=== PATIENT | male | born 1955 | race Two or more races ===

== ENCOUNTER 2017-05-10 10:22 | Emergency (ER) | payer BC, OTHER ==
[~2017-05-10] VITALS: Ht 170.2 cm; Wt 49.9 kg
[~2017-05-10 10:22] MED LIST: EYE VITAMIN PO; OMEGA-31000 M1 PO; SM NATURAL BAL100 MG PO
[2017-05-10] MEDS ORDERED: MULTIVITAMINS1 EAC8 ORAL (10:33)
[2017-05-10] MEDS ORDERED: Morphine Sulfate 2mg/ml Inj IVP ONE (11:15)
[2017-05-10 11:36] LABS: APPEARANCE,URINE CLEAR; BASOPHILS % (AUTO) 1.7 % (0.0-2.0); EOSINOPHILS % (AUTO) 1.5 % (0.0-3.0); KETONES,URINE NEGATIVE (NEGATIVE); LEUKOCYTE ESTERASE ,URINE 1+ (NEGATIVE); LYMPHOCYTES % (AUTO) 20.3 % (20.0-45.0); MEAN CORPUSCULAR HEMOGLOBIN 30.7 PG (27.0-31.0); MEAN CORPUSCULAR HGB CONC 33.4 G/DL (32.0-36.0); MEAN CORPUSCULAR VOLUME 92 FL (80-99); MEAN PLATELET VOLUME 9.9 FL (6.5-10.1); MONOCYTES % (AUTO) 9.3 % (1.0-10.0); NEUTROPHILS % (AUTO) 67.2 % (45.0-75.0); NITRITE,URINE NEGATIVE (NEGATIVE); PH,URINE 7 (4.5-8.0); PLATELET COUNT 162 K/UL (150-450); PROTEIN,URINE NEGATIVE (NEGATIVE); RED BLOOD COUNT 4.43 M/UL (4.70-6.10); RED CELL DISTRIBUTION WIDTH 10.8 % (11.6-14.8); UROBILINOGEN,URINE NORMAL MG/DL (0.0-1.0); WHITE BLOOD COUNT 6.9 K/UL (4.8-10.8)
[2017-05-10 11:44] LABS: BACTERIA,URINE OCCASIONAL /HPF; RBC,URINE 0-2 /HPF (0 - 0); SQUAMOUS EPITHELIAL CELL,UR OCCASIONAL /LPF (NONE/OCC); WBC,URINE 0-2 /HPF (0 - 0)
[2017-05-10 11:54] LABS: ALANINE AMINOTRANSFERASE 12 U/L (3-41); ALBUMIN/GLOBULIN RATIO 1.5 (1.0-2.7); ANION GAP 9 (5-15); ASPARTATE AMINO TRANSFERASE 18 U/L (5-40); CALCIUM 9.1 mg/dL (8.6-10.2); CARBON DIOXIDE 29 mEQ/L (20-30); CHLORIDE 94 mEQ/L (98-107); CREATININE 0.9 mg/dL (0.7-1.2); GLOMERULAR FILTRATION RATE > 60 mL/min (>60); HEMOLYSIS 5; LIPASE 28 U/L (< 60); POTASSIUM 4.5 mEQ/L (3.4-4.9); SODIUM 132 mEQ/L (135-145)
[2017-05-10 12:30] VITALS: BP 112/72
[2017-05-10] MEDS ORDERED: BENTYL10 MG ORAL (13:38)
[2017-05-10 14:05] VITALS: BP 116/78
--- NOTE | 2017-05-11 06:28 | Emergency Room Report ---
History of Present Illness General Chief Complaint: Abdominal Pain Source: Patient Present Illness HPI Patient is a 61-year-old male who presented for increased lower abdominal pain. Patient had reportedly pain from his right flank which radiated to his right lower quadrant. The patient denied dysuria. He denied any prior history of kidney stones. He states he previously been diagnosed with [place]'s disease however this had resolved. The patient had not been vomiting. He denied any diarrhea. Allergies: Coded Allergies: No Known Allergies (Unverified , 06/13/14) Patient History Past Medical History: see triage record Reviewed Nursing Documentation: PMH: Agreed, PSxH: Agreed Nursing Documentation-PMH Hx Cardiac Problems: No Hx Cancer: No Hx Gastrointestinal Problems: Yes Hx Neurological Problems: No - [place]'s Disease. Review of Systems All Other Systems: negative except mentioned in HPI Physical Exam Vital Signs Date Time Temp Pulse Resp B/P (MAP) Pulse Ox O2 Delivery O2 Flow Rate FiO2 05/10/17 10:29 98.1 83 17 127/80 96 Room Air Sp02 EP Interpretation: reviewed, normal General Appearance: normal inspection, well appearing, no apparent distress, alert, GCS 15 Head: atraumatic ENT: normal ENT inspection, hearing grossly normal, normal voice Neck: normal inspection, full range of motion, supple, no bony tend Respiratory: normal inspection, lungs clear, normal breath sounds, no respiratory distress, no retraction, no wheezing Cardiovascular #1: regular rate, rhythm, no edema Gastrointestinal: normal inspection, normal bowel sounds, non tender, soft, no guarding, no hernia Genitourinary: no CVA tenderness Musculoskeletal: normal inspection, back normal, normal range of motion Neurologic: normal inspection, alert, oriented x3, responsive, business broker III-XII nml as tested, speech normal Psychiatric: normal inspection, judgement/insight normal, mood/affect normal Skin: normal inspection, normal color, no rash Medical Decision Making Diagnostic Impression: Primary Impression: Abdominal pain Additional Impression: Fatty liver ER Course Patient presented for abdominal pain. Differential diagnoses included ischemic bowel, appendicitis, perforated viscus, abdominal aortic aneurysm, inferior myocardial infarction, viral gastroenteritis Because of complexity of patient's case laboratory testing and imaging studies were ordered.The left her testing was unremarkable. The patient's electrolyte appear normal. CT the head and pelvis was ordered to evaluate for possible appendicitis as CT with radiology showed normal appendix. The patient is advised to follow up with primary care doctor in 1-2 days. Patient is advised to return if any worsening condition or if any changes in status that are concerning. Labs Test 05/10/17 11:30 White Blood Count 6.9 K/UL (4.8-10.8) Red Blood Count 4.43 M/UL (4.70-6.10) Hemoglobin 13.6 G/DL (14.2-18.0) Hematocrit 40.8 % (42.0-52.0) Mean Corpuscular Volume 92 FL (80-99) Mean Corpuscular Hemoglobin 30.7 PG (27.0-31.0) Mean Corpuscular Hemoglobin Concent 33.4 G/DL (32.0-36.0) Red Cell Distribution Width 10.8 % (11.6-14.8) Platelet Count 162 K/UL (150-450) Mean Platelet Volume 9.9 FL (6.5-10.1) Neutrophils (%) (Auto) 67.2 % (45.0-75.0) Lymphocytes (%) (Auto) 20.3 % (20.0-45.0) Monocytes (%) (Auto) 9.3 % (1.0-10.0) Eosinophils (%) (Auto) 1.5 % (0.0-3.0) Basophils (%) (Auto) 1.7 % (0.0-2.0) Urine Color Pale yellow Urine Appearance Clear Urine pH 7 (4.5-8.0) Urine Specific [place] 1.015 (1.005-1.035) Urine Protein Negative (NEGATIVE) Urine Glucose (UA) Negative (NEGATIVE) Urine Ketones Negative (NEGATIVE) Urine Occult Blood 3+ (NEGATIVE) Urine Nitrite Negative (NEGATIVE) Urine Bilirubin Negative (NEGATIVE) Urine Urobilinogen Normal MG/DL (0.0-1.0) Urine Leukocyte Esterase 1+ (NEGATIVE) Urine RBC 0-2 /HPF (0 - 0) Urine WBC 0-2 /HPF (0 - 0) Urine Squamous Epithelial Cells Occasional /LPF Urine Bacteria Occasional /HPF (NONE) Sodium Level 132 mEQ/L (135-145) Potassium Level 4.5 mEQ/L (3.4-4.9) Chloride Level 94 mEQ/L (98-107) Carbon Dioxide Level 29 mEQ/L (20-30) Anion Gap 9 (5-15) Blood Urea Nitrogen 15 mg/dL (7-23) Creatinine 0.9 mg/dL (0.7-1.2) Estimat Glomerular Filtration Rate > 60 mL/min (>60) Glucose Level 102 mg/dL (74-106) Calcium Level 9.1 mg/dL (8.6-10.2) Total Bilirubin 0.7 mg/dL (0.0-1.2) Aspartate Amino Transf (AST/SGOT) 18 U/L (5-40) Alanine Aminotransferase (ALT/SGPT) 12 U/L (3-41) Alkaline Phosphatase 71 U/L (40-129) Total Protein 7.0 g/dL (6.6-8.7) Albumin 4.3 g/dL (3.5-5.2) Globulin 2.7 g/dL Albumin/Globulin Ratio 1.5 (1.0-2.7) Lipase 28 U/L (< 60) Last Vital Signs Date Time Temp Pulse Resp B/P (MAP) Pulse Ox O2 Delivery O2 Flow Rate FiO2 05/10/17 14:05 98.3 71 16 116/78 99 Room Air Status: improved Disposition: HOME, SELF-CARE Condition: Stable Scripts Dicyclomine Hcl* (BENTYL*) 10 Mg Capsule 10 MG ORAL FOUR TIMES A DAY, #20 CAP Prov: Lv Lamb 05/10/17 Referrals: Emily ALARCON,REFERRING (PCP) Patient Instructions: Abdominal Pain, Adult Lv Lamb May 11, 2017 06:28
--- NOTE | 2017-05-11 10:18 | Diagnostic Imaging Report ---
Indication: Abdominal pain Technique: CT of the abdomen and pelvis utilizing automated exposure control with intravenous contrast. Venous scanning performed. CT dose: Total DLP 653 mGycm; CTDI vol 12.3 mGy Comparison: None Findings: Lung bases are clear. Liver, adrenal glands, spleen and the pancreas are grossly unremarkable. No CT evident gallstones are identified. The kidneys are grossly unremarkable. The small bowel loops are normal in caliber. The appendix is normal. There is colonic diverticulosis without diverticulitis. There is a 1.6 cm area of rounded low-density within the midline of the seminal vesicles/prostate junction. The prostate is enlarged. Bladder is grossly unremarkable. Atherosclerotic changes are seen. The abdominal aorta is normal in caliber. Osseous structures demonstrate no acute abnormality. There is a small diverticulum of the posterior proximal stomach. Impression: No acute intra-abdominal abnormality. Normal appendix. Mild colonic diverticulosis without diverticulitis. Prostate enlargement. Approximately 1.6 cm rounded low-density within the midline of the seminal vesicles/prostate junction of uncertain etiology. Correlation with urinalysis and PSA recommended. Further evaluation recommended as indicated. Other findings as above. Findings discussed with Dr. Lamb 05/11/[address] scanner at [facility] is accredited by the [employer] [place] [employer] and the scans are performed using protocols designed to limit radiation exposure to as low as reasonably achievable to attain images of sufficient resolution adequate for diagnostic evaluation.
== END 2017-05-10 14:17 | disposition home or self-care (01) ==
LOC: EMR 10:40
DX: R10.30 Lower abdominal pain, unspecified (principal); K76.0 Fatty (change of) liver, not elsewhere classified; K57.30 Diverticulosis of large intestine without perforation or abscess without bleeding
CPT/HCPCS: 74177; 80053; 81003; 83690; 85025; 96374; 99284; J2270; Q9967

== ENCOUNTER 2017-07-04 09:01 | Inpatient (IN) | payer OTHER, BC ==
[~2017-07-04] VITALS: Ht 167.6 cm; Wt 49.9 kg
[~2017-07-04 09:01] MED LIST changes: +BENTYL10 MG ORAL; +MULTIVITAMINS1 EAC8 ORAL
[2017-07-04] MEDS ORDERED: AMOXICILLIN500 MG ORAL (09:12)
[2017-07-04 09:15] VITALS: BP 114/71
[2017-07-04 10:33] LABS: BASOPHILS % (AUTO) 0.8 % (0.0-2.0); EOSINOPHILS % (AUTO) 0.2 % (0.0-3.0); LYMPHOCYTES % (AUTO) 11.3 % (20.0-45.0); MEAN CORPUSCULAR HEMOGLOBIN 31.3 PG (27.0-31.0); MEAN CORPUSCULAR HGB CONC 34.3 G/DL (32.0-36.0); MEAN CORPUSCULAR VOLUME 91 FL (80-99); MEAN PLATELET VOLUME 10.1 FL (6.5-10.1); MONOCYTES % (AUTO) 10.9 % (1.0-10.0); NEUTROPHILS % (AUTO) 76.7 % (45.0-75.0); PLATELET COUNT 161 K/UL (150-450); RED BLOOD COUNT 4.19 M/UL (4.70-6.10); RED CELL DISTRIBUTION WIDTH 10.4 % (11.6-14.8); WHITE BLOOD COUNT 8.7 K/UL (4.8-10.8)
[2017-07-04] MEDS ORDERED: Hydrocortisone 100mg Inj IV ONE (10:45)
--- NOTE | 2017-07-04 10:51 | Emergency Room Report ---
History of Present Illness General Chief Complaint: Upper Respiratory Illness Source: Patient Present Illness HPI 51-year-old male, history of [place]'s disease, not on medication, presenting with 3 days of generalized weakness, chills, cough. Cough is productive with white sputum. Subjective fevers however did not take his medication. States that he feels very weak he cannot even eat or drink. No sick contacts or recent travel. 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 Review of Systems All Other Systems: negative except mentioned in HPI Physical Exam Vital Signs Date Time Temp Pulse Resp B/P (MAP) Pulse Ox O2 Delivery O2 Flow Rate FiO2 07/04/17 09:06 99.1 87 14 114/71 99 Room Air Sp02 EP Interpretation: reviewed, normal General Appearance: other - Tired appearing middle age male, calm and cooperative, slightly dehydrated, not in respiratory distress Head: normocephalic, atraumatic Eyes: bilateral eye normal inspection, bilateral eye PERRL, bilateral eye EOMI ENT: normal ENT inspection, normal pharynx, normal voice, moist mucus membranes Neck: normal inspection, full range of motion, supple Respiratory: normal inspection, lungs clear, normal breath sounds, no respiratory distress, no retraction, no wheezing, speaking full sentences, chest symmetrical Cardiovascular #1: normal inspection, regular rate, rhythm, no edema, normal capillary refill Cardiovascular #2: 2+ radial (R), 2+ radial (L) Gastrointestinal: normal inspection, non tender, soft, non-distended, no guarding Musculoskeletal: normal inspection, back normal, normal range of motion, non- tender Neurologic: normal inspection, alert, oriented x3, responsive, motor strength/ tone normal, sensory intact, normal gait, speech normal Psychiatric: normal inspection, judgement/insight normal, memory normal Skin: normal inspection, normal color, no rash, warm/dry, well hydrated, normal turgor Medical Decision Making Diagnostic Impression: Primary Impression: Hyponatremia Additional Impressions: Generalized weakness [place] disease ER Course 61-year-old male with fever chills and cough DDX: Viral syndrome / URI / versus pneumonia Plan: Obtain labs, ua, EKG, CXR ER course: Patient has been monitored during ED stay, HD stable Patient was given hydrocortisone + fluids +hyponatremia attempted to call pts PMD dr Martinez [phone] no answer will admit to panel Disposition: Patient is to be admitted to [facility] floor D/W hospitalist Dr Marlow Please note that this Emergency Department Report was dictated using [employer] The[employer] of cardiac cath lab technology software, occasionally this can lead to erroneous entry secondary to interpretation by the dictation equipment. EKG Diagnostic Results EP Interpretation: Yes Rate: normal Rhythm: NSR ST Segments: No acute changes ASA given to patient: No Rhythm Strip EP Interpretation: Yes Rate: 74 Rhythm: NSR, no PVCs, no ectopy Chest X-ray CXR: Ordered: Yes 1 view Indication: Cough EP interpretation: Yes Interpretation: No consolidation, no effusion, no PTX, no acute cardiopulmonary disease Impression: No acute disease Electronically signed by Delores Trotter MD Laboratory Tests Test 07/04/17 09:49 07/04/17 10:29 White Blood Count 8.7 K/UL (4.8-10.8) Red Blood Count 4.19 M/UL (4.70-6.10) L Hemoglobin 13.1 G/DL (14.2-18.0) L Hematocrit 38.2 % (42.0-52.0) L Mean Corpuscular Volume 91 FL (80-99) Mean Corpuscular Hemoglobin 31.3 PG (27.0-31.0) H Mean Corpuscular Hemoglobin Concent 34.3 G/DL (32.0-36.0) Red Cell Distribution Width 10.4 % (11.6-14.8) L Platelet Count 161 K/UL (150-450) Mean Platelet Volume 10.1 FL (6.5-10.1) Neutrophils (%) (Auto) 76.7 % (45.0-75.0) H Lymphocytes (%) (Auto) 11.3 % (20.0-45.0) L Monocytes (%) (Auto) 10.9 % (1.0-10.0) H Eosinophils (%) (Auto) 0.2 % (0.0-3.0) Basophils (%) (Auto) 0.8 % (0.0-2.0) Sodium Level 122 MMOL/L (136-145) L Potassium Level 4.0 MMOL/L (3.5-5.1) Chloride Level 89 MMOL/L (98-107) L Carbon Dioxide Level 26 MMOL/L (21-32) Anion Gap 7 mmol/L (5-15) Blood Urea Nitrogen 16 mg/dL (7-18) Creatinine 0.9 MG/DL (0.55-1.30) Estimate Glomerular Filtration Rate > 60 mL/min (>60) Glucose Level 103 MG/DL (74-106) Lactic Acid Level 0.90 mmol/L (0.66-2.22) Calcium Level 8.7 MG/DL (8.5-10.1) Total Bilirubin 0.9 MG/DL (0.2-1.0) Aspartate Amino Transferase (AST) 24 U/L (15-37) Alanine Aminotransferase (ALT) 27 U/L (12-78) Alkaline Phosphatase 65 U/L (46-116) Creatine Kinase MB 0.5 NG/ML (0.0-3.6) Troponin I 0.017 ng/mL (0.000-0.056) Total Protein 7.5 G/DL (6.4-8.2) Albumin 3.9 G/DL (3.4-5.0) Globulin 3.6 g/dL Albumin/Globulin Ratio 1.1 (1.0-2.7) Urine Color Pale yellow Urine Appearance Clear Urine pH 8 (4.5-8.0) Urine Specific [place] 1.015 (1.005-1.035) Urine Protein Negative (NEGATIVE) Urine Glucose (UA) Negative (NEGATIVE) Urine Ketones Negative (NEGATIVE) Urine Occult Blood 1+ (NEGATIVE) H Urine Nitrite Negative (NEGATIVE) Urine Bilirubin Negative (NEGATIVE) Urine Urobilinogen Normal MG/DL (0.0-1.0) Urine Leukocyte Esterase Negative (NEGATIVE) Urine RBC 0 /HPF (0 - 0) Urine WBC 2-4 /HPF (0 - 0) Urine Squamous Epithelial Cells Occasional /LPF Urine Bacteria Occasional /HPF (NONE) Last Vital Signs Date Time Temp Pulse Resp B/P (MAP) Pulse Ox O2 Delivery O2 Flow Rate FiO2 07/04/17 09:15 87 14 Room Air 07/04/17 09:15 99.1 114/71 99 Disposition: ADMITTED INPATIENT Condition: Serious Referrals: NON PHYSICIAN (PCP) Delores Trotter M.D. Jul 04, 2017 10:51
[2017-07-04 10:54] LABS: ANION GAP 7 mmol/L (5-15); CALCIUM 8.7 MG/DL (8.5-10.1); CARBON DIOXIDE 26 MMOL/L (21-32); CHLORIDE 89 MMOL/L (98-107); CREATININE 0.9 MG/DL (0.55-1.30); GLOMERULAR FILTRATION RATE > 60 mL/min (>60); SODIUM 122 MMOL/L (136-145)
--- NOTE | 2017-07-04 11:02 | Diagnostic Imaging Report ---
Indication: SOB/cough Technique: One view of the chest Comparison: None Findings: There is bilateral apical pleural thickening and evidence of bilateral apical reticulonodular scarring. Lungs and pleural spaces are otherwise clear. Heart size is normal. Impression: Chronic appearing findings as noted. No definite acute process
[2017-07-04 11:08] LABS: ALANINE AMINOTRANSFERASE 27 U/L (12-78); ALBUMIN/GLOBULIN RATIO 1.1 (1.0-2.7); ASPARTATE AMINO TRANSFERASE 24 U/L (15-37); CKMB 0.5 NG/ML (0.0-3.6); TOTAL PROTEIN 7.5 G/DL (6.4-8.2)
[2017-07-04 11:16] VITALS: BP 123/64
[2017-07-04 11:19] LABS: APPEARANCE,URINE CLEAR; KETONES,URINE NEGATIVE (NEGATIVE); LEUKOCYTE ESTERASE ,URINE NEGATIVE (NEGATIVE); NITRITE,URINE NEGATIVE (NEGATIVE); PH,URINE 8 (4.5-8.0); PROTEIN,URINE NEGATIVE (NEGATIVE); UROBILINOGEN,URINE NORMAL MG/DL (0.0-1.0)
[2017-07-04 11:26] LABS: BACTERIA,URINE OCCASIONAL /HPF; RBC,URINE 0 /HPF (0 - 0); SQUAMOUS EPITHELIAL CELL,UR OCCASIONAL /LPF (NONE/OCC)
[2017-07-04 17:37] VITALS: BP 116/65
--- NOTE | 2017-07-04 18:06 | Infectious Diseases Prog Note ---
Assessment/Plan Problems: (1) CAP (community acquired pneumonia) Assessment & Plan: will start levaquin empiric therapy for 5-7 days , send sputum culture (2) Cough Assessment & Plan: johnathon out viral etiology, will screen for influenza, and start tamiflu empirically (3) Hyponatremia Assessment & Plan: suspect dehydration, nephrology is following (4) Generalized weakness (5) Jg disease Subjective Allergies: Coded Allergies: No Known Allergies (Unverified , 06/13/14) Objective Vital Signs Last 24 Hour Vital Signs Date Time Temp Pulse Resp B/P (MAP) Pulse Ox O2 Delivery O2 Flow Rate FiO2 07/04/17 17:37 98.5 78 18 116/65 100 Room Air 07/04/17 13:40 99.0 90 23 123/64 100 Room Air 07/04/17 11:16 99.0 90 23 123/64 100 Room Air 07/04/17 09:15 87 14 Room Air 07/04/17 09:15 99.1 84 14 114/71 99 Room Air 07/04/17 09:06 99.1 87 14 114/71 99 Room Air Height (Feet): 5 Height (Inches): 6.00 Weight (Pounds): 110 Laboratory Tests Test 07/04/17 09:49 07/04/17 10:29 White Blood Count 8.7 K/UL (4.8-10.8) Red Blood Count 4.19 M/UL (4.70-6.10) L Hemoglobin 13.1 G/DL (14.2-18.0) L Hematocrit 38.2 % (42.0-52.0) L Mean Corpuscular Volume 91 FL (80-99) Mean Corpuscular Hemoglobin 31.3 PG (27.0-31.0) H Mean Corpuscular Hemoglobin Concent 34.3 G/DL (32.0-36.0) Red Cell Distribution Width 10.4 % (11.6-14.8) L Platelet Count 161 K/UL (150-450) Mean Platelet Volume 10.1 FL (6.5-10.1) Neutrophils (%) (Auto) 76.7 % (45.0-75.0) H Lymphocytes (%) (Auto) 11.3 % (20.0-45.0) L Monocytes (%) (Auto) 10.9 % (1.0-10.0) H Eosinophils (%) (Auto) 0.2 % (0.0-3.0) Basophils (%) (Auto) 0.8 % (0.0-2.0) Sodium Level 122 MMOL/L (136-145) L Potassium Level 4.0 MMOL/L (3.5-5.1) Chloride Level 89 MMOL/L (98-107) L Carbon Dioxide Level 26 MMOL/L (21-32) Anion Gap 7 mmol/L (5-15) Blood Urea Nitrogen 16 mg/dL (7-18) Creatinine 0.9 MG/DL (0.55-1.30) Estimat Glomerular Filtration Rate > 60 mL/min (>60) Glucose Level 103 MG/DL (74-106) Lactic Acid Level 0.90 mmol/L (0.66-2.22) Calcium Level 8.7 MG/DL (8.5-10.1) Total Bilirubin 0.9 MG/DL (0.2-1.0) Aspartate Amino Transf (AST/SGOT) 24 U/L (15-37) Alanine Aminotransferase (ALT/SGPT) 27 U/L (12-78) Alkaline Phosphatase 65 U/L (46-116) Creatine Kinase MB 0.5 NG/ML (0.0-3.6) Troponin I 0.017 ng/mL (0.000-0.056) Total Protein 7.5 G/DL (6.4-8.2) Albumin 3.9 G/DL (3.4-5.0) Globulin 3.6 g/dL Albumin/Globulin Ratio 1.1 (1.0-2.7) Urine Color Pale yellow Urine Appearance Clear Urine pH 8 (4.5-8.0) Urine Specific [place] 1.015 (1.005-1.035) Urine Protein Negative (NEGATIVE) Urine Glucose (UA) Negative (NEGATIVE) Urine Ketones Negative (NEGATIVE) Urine Occult Blood 1+ (NEGATIVE) H Urine Nitrite Negative (NEGATIVE) Urine Bilirubin Negative (NEGATIVE) Urine Urobilinogen Normal MG/DL (0.0-1.0) Urine Leukocyte Esterase Negative (NEGATIVE) Urine RBC 0 /HPF (0 - 0) Urine WBC 2-4 /HPF (0 - 0) Urine Squamous Epithelial Cells Occasional /LPF Urine Bacteria Occasional /HPF (NONE) Current Medications Medications (Trade) Dose Ordered Sig/Dilpi Route PRN Reason Start Time Stop Time Status Last Admin Dose Admin Ondansetron HCl (Zofran) 4 mg Q4H PRN IVP Nausea & Vomiting 07/04/17 15:15 08/03/17 15:14 Sodium Chloride 1,000 ml @ 60 mls/hr [id number] IV 07/04/17 15:30 08/03/17 15:29 07/04/17 16:49 Ricci Cevallos M.D. Jul 04, 2017 18:06
[2017-07-04] MEDS ORDERED: guaiFENesin w/Codeine 5ml Liq ud ORAL PRN (18:15)
[2017-07-04] MEDS: Oseltamivir 75mg cap ORAL SCH ×2 (19:30→21:40)
[2017-07-04 20:00] VITALS: BP 107/66
[2017-07-04] MEDS: Tamsulosin 0.4mg cap ORAL SCH ×2 (21:00→21:40)
[2017-07-05] VITALS: BP 92/58
[2017-07-05 04:00] VITALS: BP 115/70
--- NOTE | 2017-07-05 05:16 | Consultation ---
DATE OF CONSULTATION: 07/04/2017 INFECTIOUS DISEASE CONSULTATION REQUESTING PHYSICIAN: Jesus Bowden M.D. REASON FOR CONSULTATION: Upper respiratory tract infection, pneumonia, and pharyngitis. Recommendation for antibiotics treatment and further management in the patient with Major disease. HISTORY OF PRESENT ILLNESS: The patient is a 61-year-old male, originally from [place] with history of Major disease, not on any medication treatment, presented to the emergency room with sore throat, earache, and productive cough of yellowish phlegm. It started about couple of days ago when his son was sick with similar symptoms. The patient started having sore throat and ear ache, then difficulty swallowing and cough, which was dry at the beginning and became productive later of yellowish phlegm. The patient had chills, but no fever. He denied any shortness of breath. Denied any recent travel. Denied any smoking. The patient was found to be febrile in the emergency room with temperature of 99.1 degrees. Chest x-ray did not show any acute infiltration. The patient received IV steroid in the emergency room and he was admitted to the hospital for further evaluation and I was consulted by the primary provider for antibiotics treatment and further management. PAST MEDICAL HISTORY: Significant for Jg disease and GERD. PAST SURGICAL HISTORY: Negative. MEDICATIONS: He is on Proscar, Protonix, Flomax, Robitussin, Bulan, and Cepacol. ALLERGIES: No known drug allergy. SOCIAL HISTORY: The patient is , lives with his kids, unemployed at this point. Denied using any drugs, tobacco, or alcohol. FAMILY HISTORY: Noncontributory. REVIEW OF SYSTEMS: Fourteen point of system reviewed were all negative apart from the one I mentioned above in my History and Physical. PHYSICAL EXAMINATION: VITAL SIGNS: Temperature 98.5 degrees, pulse 78, respirations 18, blood pressure 116/65, and saturation 100% on room air. GENERAL: A middle-aged male, up in bed, complaining of sore throat, coughing phlegm, not in acute distress. HEENT: Normocephalic and atraumatic. Pupils reactive to light. Moist oral mucosa. Red injected throat in the back with no exudate or ulceration. NECK: Supple. No lymphadenopathy. CARDIOVASCULAR: Regular rate and rhythm. No murmur or gallop. LUNGS: Clear bilaterally. Diminished breathing sounds at the bases. No wheezing or rhonchi. ABDOMEN: Soft, nontender, and nondistended. Positive bowel sounds. No hepatosplenomegaly or ascites. EXTREMITIES: No edema or cyanosis. LABORATORY AND DIAGNOSTIC DATA: Labs showed white count of 8.7, hemoglobin of 13.1, and platelet count of 161,000. BUN of 16 and creatinine of 0.9. AST of 24. Urinalysis negative for infection. Imaging, chest x-ray showed no acute process. ASSESSMENT AND RECOMMENDATION: 1. Community-acquired pneumonia. We will start the patient empirically on Levaquin for five to seven days. We will send sputum culture to identify exact organism. 2. Cough, rule out viral etiology such as influenza. We will screen the patient for influenza and start Tamiflu empiric treatment. 3. Hyponatremia suspect due to dehydration and Major disease. Agree on steroids for now. Recommend hydration. Further management as per Nephrology. 4. Generalized weakness due to the above. Continue supportive care and hydration. 5. Jg disease. Recommend Endocrinology consultation to start medication as soon as possible. Ricci Cevallos M.D. DR: Rose JOB#: [id number] CC:
--- NOTE | 2017-07-05 05:46 | HX and Phyl Repo 2 Sig ---
DATE OF ADMISSION: 07/04/2017 INTERNAL MEDICINE HISTORY AND PHYSICAL HISTORY OF PRESENT ILLNESS: The patient is a 61-year-old male with a past medical history significant for [place]'s disease, not on medications, who presented with generalized weakness, cough, and sore throat x3 days. He also did admit that he was having fevers off and on with chills and is lying in bed at this time upset that sputum culture was not obtained from him for analysis. He denied taking any medications and denies any traveling outside the country. Cough is nonproductive with whitish sputum. Denies chest pain with some lower abdominal discomfort. Also stated that he has some nausea with no vomiting. PAST MEDICAL HISTORY: Jg's disease. HOME MEDICATIONS: Include Bentyl 10 mg p.o. t.i.d., multivitamin tablet p.o. daily, omega-3 1000 mg p.o. daily, and vitamin B 100 mg p.o. daily. ALLERGIES: No known allergies. SOCIAL HISTORY: He is , lives at home with family. Denies any smoking. No alcohol use. No illicit drug use. FAMILY HISTORY: Noncontributory. REVIEW OF SYSTEMS: A full 12 point review of system was reviewed with the patient and positives as stated in the HPI. PHYSICAL EXAMINATION: GENERAL: This is a 61-year-old male, in no apparent distress, lying comfortably in bed. VITAL SIGNS: Blood pressure 116/65, heart rate is 78, respiratory rate 18, temperature is 98.5 degrees, O2 saturation is 100% on room air. HEENT: Head is normocephalic and atraumatic. Pupils are equal, round, and reactive to light and accommodation. No lesions noted in the oral cavity. No exudates. Trachea is midline. LUNGS: Clear to auscultation bilaterally. No crackles. No wheezing. CARDIOVASCULAR: Regular rate and rhythm. S1 and S2. ABDOMEN: Soft, nontender, and nondistended. Positive bowel sounds in all four quadrants. EXTREMITIES: No edema. No cyanosis. No clubbing. NEUROLOGIC: The patient is awake, alert, and oriented x3 with no focal deficits. LABORATORY DATA: CBC, white count 8.7, hemoglobin 13.1, hematocrit 38.2, and platelet count of 161,000. BMP, sodium 122, potassium 4.0, chloride 89, bicarbonate 26, BUN 16, creatinine 0.9, and blood glucose is 103. Troponins negative at 0.017. RADIOLOGIC FINDINGS: Chest x-ray findings, there is bilateral apical pleural thickening and evidence of bilateral apical nodular scaring. Lungs and pleural spaces are otherwise clear. Heart size is normal. Impression, chronic appearing findings as noted. No definite acute process. ASSESSMENT: 1. History of [place]'s disease. 2. Upper respiratory infection. 3. Sore throat. 4. Productive cough. 5. Hematuria. 6. Hyponatremia. PLAN: We will obtain an Infectious Disease consult with Dr. Cevallos. We will continue current IV fluid at 100 mL an hour. We will check lytes in the morning. We will monitor lytes and correct as needed. We will add Protonix p.o. to treatment plan. Add to treatment plan as well. We will monitor the patient's overall response to treatment. Jseus Bowden M.D. Karine Hansen DR: Erendira JOB#: [id number] CC:
[2017-07-05 07:20] LABS: BASOPHILS % (AUTO) 0.6 % (0.0-2.0); EOSINOPHILS % (AUTO) 0.2 % (0.0-3.0); LYMPHOCYTES % (AUTO) 15.4 % (20.0-45.0); MEAN CORPUSCULAR HEMOGLOBIN 32.3 PG (27.0-31.0); MEAN CORPUSCULAR HGB CONC 35.4 G/DL (32.0-36.0); MEAN CORPUSCULAR VOLUME 91 FL (80-99); MEAN PLATELET VOLUME 10.3 FL (6.5-10.1); MONOCYTES % (AUTO) 11.9 % (1.0-10.0); PLATELET COUNT 149 K/UL (150-450); RED BLOOD COUNT 3.74 M/UL (4.70-6.10); RED CELL DISTRIBUTION WIDTH 10.2 % (11.6-14.8); WHITE BLOOD COUNT 7.2 K/UL (4.8-10.8)
[2017-07-05] MEDS: Norco 5mg/325mg tab ORAL PRN ×2 (07:22→12:43)
[2017-07-05 07:39] LABS: ANION GAP 6 mmol/L (5-15); CALCIUM 8.2 MG/DL (8.5-10.1); CARBON DIOXIDE 28 MMOL/L (21-32); CHLORIDE 98 MMOL/L (98-107); CREATININE 0.9 MG/DL (0.55-1.30); GLOMERULAR FILTRATION RATE > 60 mL/min (>60); POTASSIUM 3.6 MMOL/L (3.5-5.1); SODIUM 132 MMOL/L (136-145)
[2017-07-05 07:59] VITALS: BP 112/65
[2017-07-05] MEDS ORDERED: Tubing IV Secondary IV ONE (10:36)
[2017-07-05 11:46] VITALS: BP 117/86
--- NOTE | 2017-07-05 13:59 | Infectious Diseases Prog Note ---
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 Subjective Constitutional: Reports: no symptoms HEENT: Reports: congestion Respiratory: Reports: no symptoms Breasts: Reports: no symptoms Cardiovascular: Reports: no symptoms Gastrointestinal/Abdominal: Reports: no symptoms Genitourinary: Reports: no symptoms Neurologic: Reports: no symptoms Psychiatric: Reports: no symptoms Skin: Reports: no symptoms Endocrine: Reports: no symptoms Hematologic: Reports: no symptoms Allergies: Coded Allergies: No Known Allergies (Unverified , 06/13/14) Objective Vital Signs Last 24 Hour Vital Signs Date Time Temp Pulse Resp B/P (MAP) Pulse Ox O2 Delivery O2 Flow Rate FiO2 07/05/17 13:40 98.4 07/05/17 11:46 98.4 86 20 117/86 97 Room Air 07/05/17 07:59 98.1 82 20 112/65 96 Room Air 07/05/17 04:00 98.7 86 18 115/70 96 Room Air 07/05/17 00:00 99.2 84 18 92/58 97 Room Air 07/04/17 20:00 98.9 97 18 107/66 97 Room Air 07/04/17 17:37 98.5 78 18 116/65 100 Room Air Height (Feet): 5 Height (Inches): 6.00 Weight (Pounds): 110 General Appearance: WD/WN, no acute distress HEENT: normocephalic, atraumatic, anicteric, mucous membranes moist, PERRL, EOMI, supple, no JVD, other - red ,congested throat Respiratory/Chest: chest wall non-tender, lungs clear, normal breath sounds, no respiratory distress, no accessory muscle use Cardiovascular: normal peripheral pulses, normal rate, regular rhythm, no gallop/murmur, no JVD Abdomen: normal bowel sounds, soft, non tender, no organomegaly, non distended , no mass Extremities: no cyanosis, no clubbing Skin: no rash, no lesions, no ulcers Neurologic/Psychiatric: alert, oriented x 3 Lymphatic: no neck adenopathy, no groin adenopathy Musculoskeletal: normal muscle bulk Microbiology Date/Time Source Procedure Growth Status 07/04/17 20:30 Nasopharynx Influenza Types A,B Antigen (BELA) - Final Complete Laboratory Tests Test 07/05/17 04:30 White Blood Count 7.2 K/UL (4.8-10.8) Red Blood Count 3.74 M/UL (4.70-6.10) L Hemoglobin 12.1 G/DL (14.2-18.0) L Hematocrit 34.2 % (42.0-52.0) L Mean Corpuscular Volume 91 FL (80-99) Mean Corpuscular Hemoglobin 32.3 PG (27.0-31.0) H Mean Corpuscular Hemoglobin Concent 35.4 G/DL (32.0-36.0) Red Cell Distribution Width 10.2 % (11.6-14.8) L Platelet Count 149 K/UL (150-450) L Mean Platelet Volume 10.3 FL (6.5-10.1) H Neutrophils (%) (Auto) 72.0 % (45.0-75.0) Lymphocytes (%) (Auto) 15.4 % (20.0-45.0) L Monocytes (%) (Auto) 11.9 % (1.0-10.0) H Eosinophils (%) (Auto) 0.2 % (0.0-3.0) Basophils (%) (Auto) 0.6 % (0.0-2.0) Sodium Level 132 MMOL/L (136-145) #L Potassium Level 3.6 MMOL/L (3.5-5.1) Chloride Level 98 MMOL/L (98-107) Carbon Dioxide Level 28 MMOL/L (21-32) Anion Gap 6 mmol/L (5-15) Blood Urea Nitrogen 12 mg/dL (7-18) Creatinine 0.9 MG/DL (0.55-1.30) Estimat Glomerular Filtration Rate > 60 mL/min (>60) Glucose Level 93 MG/DL (74-106) Calcium Level 8.2 MG/DL (8.5-10.1) Ricci Jalloh M.D. Jul 05, 2017 13:59
--- NOTE | 2017-07-07 13:57 | Discharge Summary ---
Discharge Summary Hospital Course Date of Admission Jul 04, 2017 at 11:23 Date of Discharge Jul 05, 2017 at 13:54 Admitting Diagnosis gen weakness-hyponatremia HPI Becca Guo is a 61 year old male who was admitted on Jul 04, 2017 at 11 :23 for General Weakness,Hyponatremia Hospital Course dc summary #[id number] Discharge Medications Continued Medications: Dicyclomine Hcl* (Bentyl*) 10 Mg Capsule 10 MG ORAL FOUR TIMES A DAY, #20 CAP Multivitamin With Minerals (Multivitamins With Minerals*) 1 Each Tablet 1 TAB ORAL DAILY, TAB Villanova-3 Fatty Acids (Villanova-3) 1,000 Mg Capsule 1000 MG PO DAILY, CAP Vit B Complex 100 Cmb #2/Herbs (Sm Natural Balanced B-100 Tab) 100 Mg Tablet 100 MG PO DAILY, TAB Discharge Discharge Disposition Patient was discharged to Home (01) Discharge Diagnoses: Discharge Instructions Discharge Instructions Special Instructions I have been assigned to complete a D/C Summary on this account. I was not involved in the patient management Elisha Carlisle NP ([facility]) Jul 07, 2017 13:57
--- NOTE | 2017-07-07 19:30 | Discharge Summary 2 SIG ---
DATE OF ADMISSION: 07/04/2017 DATE OF DISCHARGE: 07/05/2017 REASON FOR ADMISSION: 61-year-old male with a history of [place] disease, currently, not on any medication, presented to emergency department with complaint of generalized weakness, chills, and cough. Cough was productive with white sputum production. Reported fevers and chills. He stated being very weak and unable to eat or drink. Denied sick contacts or recent traveling. Laboratory workup revealed hyponatremia. Vital signs showed low-grade fever. Pulse oximetry was stable on the room air. EKG revealed normal sinus rhythm. No acute changes. Chest x-ray revealed no acute cardiopulmonary disease, but showed chronic appearing findings such as bilateral apical pleural thickening and evidence of bilateral apical reticulonodular scarring. Otherwise, lungs and pleural spaces were cleared. The patient was admitted for further management. HOSPITAL STAY: The patient admitted. The patient started on IV fluids. Infectious Disease consult requested. The patient started on empiric antibiotics for community-acquired pneumonia. Blood culture negative. Urinalysis negative. Influenza screen negative. Throat culture negative. The patient was on the IV antibiotic while in the hospital which changed to oral antibiotics upon discharge as per Infectious Disease recommendation. Hyponatremia was corrected. Sodium up to 132 prior to discharge. The patient will need to follow up with solar development engineer as outpatient. Supplemental oxygen and pulmonary toilet provided as needed. Antitussive provided as needed. The patient was on IV fluids with normal saline which corrected sodium. Acute hyponatremia likely secondary to dehydration, which resolved with IV fluids. The patient initially started on empiric Theraflu, which stopped when influenza screen test came back positive. Gastrointestinal prophylaxis provided. Due to the rapid and unexpected improvement in patient condition, the patient was discharged in one day. The patient was stable for discharge home. FINAL DIAGNOSES: 1. Community-acquired pneumonia 2. Acute hyponatremia likely secondary to dehydration and /or [place] disease. 3. Generalized weakness. 4. Dehydration, resolved. DISCHARGE MEDICATIONS: See medication reconciliation list. DISCHARGE INSTRUCTIONS: The patient was discharged home. Recommended to follow up with the solar development engineer. Jesus Bowden M.D. I have been assigned to dictate discharge summary on this account and I was not involved in the patient's management. Elisha Carlisle N.P. ([facility]) DR: Sandy JOB#: [id number] CC: [place]
--- NOTE | 2017-07-08 15:01 | Cardiology Report ---
APPROVED REPORT EKG Measurement Heart [id number] Normal sinus rhythm Normal ECG
== END 2017-07-05 13:54 | disposition home or self-care (01) | DRG 194 ==
LOC: EMR 09:23 → 3E 11:23 → EDBEDREQSVC 11:50 → EDBEDREQ 12:33
DX: J18.9 Pneumonia, unspecified organism (principal); E87.1 Hypo-osmolality and hyponatremia; E27.1 Primary adrenocortical insufficiency; E86.0 Dehydration; R53.1 Weakness; K21.9 Gastro-esophageal reflux disease without esophagitis
CPT/HCPCS: 36415; 71010; 80048; 80053; 81003; 82553; 83605; 84484; 85025; 86710; 87040; 87070; 87205; 93005; 99285